=== PATIENT | female | born 1940 | race Caucasian/White ===

== ENCOUNTER 2018-09-06 16:27 | Emergency (ER) | payer MEDICARE, BC ==
[2018-09-06 17:15] LABS: ABSOLUTE BASOPHILS # (AUTO) 0.1 10^3/uL (0.0-0.2); ABSOLUTE LYMPHOCYTES (AUTO) 0.9 10^3/uL (0.5-4.7); ABSOLUTE MONOCYTES (AUTO) 0.6 10^3/uL (0.1-1.4); ABSOLUTE NEUT (AUTO) 8.5 10^3/uL (1.7-8.2); BASOPHILS % (AUTO) 0.7 % (0-2); EOSINOPHILS % (AUTO) 0.3 % (0-6); HEMATOCRIT 41.5 % (36.0-47.0); HEMOGLOBIN 13.6 g/dL (12.0-15.5); LYMPHOCYTES % (AUTO) 8.7 % (13-45); MEAN CORPUSCULAR HEMOGLOBIN 26.6 pg (27.0-33.4); MEAN CORPUSCULAR HGB CONC 32.7 g/dL (32.0-36.0); MEAN CORPUSCULAR VOLUME 82 fl (80-97); PLATELET COUNT 179 10^3/uL (150-450); RED CELL DISTRIBUTION WIDTH 17.9 % (11.5-14.0); SEGMENTED NEUTROPHILS % (AUTO) 84.3 % (42-78); TOTAL CELLS COUNTED % (AUTO) 100 %
[2018-09-06 17:29] LABS: AMORPHOUS SEDIMENT,URINE TRACE /HPF; APPEARANCE,URINE CLOUDY; BILIRUBIN,URINE NEGATIVE (NEGATIVE); CALCIUM OXALATE CRYSTALS,URINE FEW /HPF; COLOR,URINE YELLOW; GLUCOSE, URINE NEGATIVE (NEGATIVE); KETONES,URINE TRACE mg/dL (NEGATIVE); LEUKOCYTE ESTERASE,URINE NEGATIVE (NEGATIVE); NITRITE,URINE NEGATIVE (NEGATIVE); PROTEIN,URINE >=500 mg/dL (NEGATIVE); URINE SPECIFIC GRAVITY 1.025; UROBILINOGEN,URINE NEGATIVE mg/dL (<2.0)
[2018-09-06 17:41] LABS: ALANINE AMINOTRANSFERASE 31 U/L (9-52); ALBUMIN 4.2 g/dL (3.5-5.0); ALKALINE PHOSPHATASE 64 U/L (38-126); ANION GAP 12 (5-19); ASPARTATE AMINO TRANSFERASE 23 U/L (14-36); BILIRUBIN,DIRECT 0.3 mg/dL (0.0-0.4); BILIRUBIN,TOTAL 0.6 mg/dL (0.2-1.3); BLOOD UREA NITROGEN 23 mg/dL (7-20); CALCIUM 9.9 mg/dL (8.4-10.2); CARBON DIOXIDE 25 mmol/L (22-30); CHLORIDE 106 mmol/L (98-107); GLUCOSE 177 mg/dL (75-110); POTASSIUM 4.1 mmol/L (3.6-5.0); SODIUM 142.7 mmol/L (137-145); TOTAL PROTEIN 7.3 g/dL (6.3-8.2)
[2018-09-06] MEDS ORDERED: ONDANSETRON HCL INJ/PF 4 MG/2 ML SDV IV ONE (18:13)
[2018-09-06] MEDS ORDERED: MORPHINE SULFATE 10 MG/ML INJ IV ONE (18:13)
--- NOTE | 2018-09-06 20:06 | RADIOLOGY REPORT (SQ) ---
EXAM DESCRIPTION: CT HEAD WITHOUT COMPLETED DATE/TIME: 09/06/2018 7:48 pm REASON FOR STUDY: recurrent headaches COMPARISON: None. TECHNIQUE: Axial images acquired through the brain without intravenous contrast. Images reviewed wi th bone, brain and subdural windows. Images stored on PACS. All CT scanners at this facility use dose modulation, iterative reconstruction, and/or weight based d osing when appropriate to reduce radiation dose to as low as reasonably achievable (ALARA). [facility]: Dose Right [facility]: CareDose [facility]: Dose Right [facility]: Teradose 4D [facility]: FotoIN Mobile RADIATION DOSE: CT Rad equipment meets quality standard of care and radiation dose reduction techniq ues were employed. CTDIvol: 53.2 mGy. DLP: 991 mGy-cm. mGy. LIMITATIONS: None. FINDINGS: VENTRICLES: Age-appropriate. CEREBRUM: No masses. No hemorrhage. No midline shift. Areas of low density in the white matter mos t likely due to chronic micro-vascular ischemic change. No evidence for acute infarction. CEREBELLUM: No masses. No hemorrhage. No alteration of density. No evidence for acute infarction. EXTRAAXIAL SPACES: Mild age-related involutional change. No fluid collections. No masses. ORBITS AND GLOBE: No intra- or extraconal masses. Normal contour of globe without masses. CALVARIUM: No fracture. PARANASAL SINUSES: No fluid or mucosal thickening. SOFT TISSUES: No mass or hematoma. OTHER: No other significant finding. IMPRESSION: MILD CHRONIC CHANGES OF ATROPHY AND MICROVASCULAR ISCHEMIA. NO ACUTE PROCESS. EVIDENCE OF ACUTE STROKE: NO. TECHNICAL DOCUMENTATION: JOB ID: [id number] Quality ID # [id number]: Final reports with documentation of one or more dose reduction techniques (e.g., Au tomated exposure control, adjustment of the mA and/or kV according to patient size, use of iterative reconstruction technique) 2010 [employer]- All Rights Reserved Reading location - IP/workstation name: [email or web address]
--- NOTE | 2018-09-06 20:15 | ER Document Report ---
Addendum entered and electronically signed by MANDEEP AG NP 09/07/18 12:17: Course - Re-evaluation Re-evalutation: 09/07/18 12:16 Pharmacy called to see if they could switch patient's medication for nausea to a more affordable medication. As it is not covered by their insurance plan. Pharmacy staff advised that without knowing patient given her age no change would be made other than to make her Zofran ODT just an oral tablet. Pharmacy staff encouraged to have patient see her primary doctor who can adjust her nausea medications if needed. - Vital Signs Vital signs: Temp Pulse Resp BP Pulse Ox 98.6 F 18 172/80 H 96 09/06/18 16:48 09/06/18 19:02 09/06/18 21:55 09/06/18 21:55 - Laboratory Result Diagrams: 09/06/18 16:59 09/06/18 16:59 Laboratory results interpreted by me: 09/06/18 09/06/18 09/06/18 16:44 16:59 16:59 MCH 26.6 L RDW 17.9 H Seg Neutrophils % 84.3 H Lymphocytes % 8.7 L Absolute Neutrophils 8.5 H BUN 23 H Est GFR (Non-Af Amer) 50 L Glucose 177 H Urine Protein >=500 H Urine Ketones TRACE H Urine Blood LARGE H Original Note: ED General - General Chief Complaint: Diarrhea Stated Complaint: VOMITING Time Seen by Provider: 09/06/18 17:06 Primary Care Provider: ROSY NUNEZ MD [NO LOCAL MD] - Follow up as needed Mode of Arrival: Medic Information source: Patient Notes: Patient is a 78-year-old female with past medical history of kidney stones, colon cancer, cardiac bypass, hysterectomy and cholecystectomy presenting to the emergency department with complaints of nausea and vomiting and right lower quadrant abdominal pain that started this morning. She also reports she has been having diarrhea intermittently over the last month however this has resolved and the last episode was 2 days ago. She reports that it feels like she has a kidney stone. She reports that she has blood in her urine. She denies any fevers. She reports last time she vomited was approximately 1 hour prior to arrival. She is seen by Dr. Wagner and Dr. Horton. TRAVEL OUTSIDE OF THE [place] IN LAST 30 DAYS: No - Related Data Allergies/Adverse Reactions: No Known Allergies Allergy (Unverified 08/29/11 15:01) Past Medical History - General Information source: Patient - Social History Smoking Status: Never Smoker Frequency of alcohol use: None Drug Abuse: None Family History: Reviewed & Not Pertinent Patient has suicidal ideation: No Patient has homicidal ideation: No - Past Medical History Cardiac Medical History: Reports: Hx Heart Attack - x2 CABG, Hx Hypercholesterolemia, Hx Hypertension - medicated Pulmonary Medical History: Reports: Hx Asthma - medicated Neurological Medical History: Denies: Hx Cerebrovascular Accident, Hx Seizures Renal/ Medical History: Denies: Hx Peritoneal Dialysis GI Medical History: Denies: Hx Hepatitis, Hx Hiatal Hernia, Hx Ulcer Infectious Medical History: Denies: Hx Hepatitis Past Surgical History: Reports: Hx Cardiac Surgery, Hx Cholecystectomy, Hx Hysterectomy, Hx Open Heart Surgery. Denies: Hx Mastectomy, Hx Pacemaker - Immunizations Hx Diphtheria, Pertussis, Tetanus Vaccination: Yes Review of Systems - Review of Systems Constitutional: No symptoms reported. denies: Chills, Fever EENT: No symptoms reported Cardiovascular: No symptoms reported Respiratory: No symptoms reported Gastrointestinal: Abdominal pain, Nausea, Vomiting Genitourinary: Flank pain, Hematuria Female Genitourinary: No symptoms reported Musculoskeletal: No symptoms reported Skin: No symptoms reported Hematologic/Lymphatic: No symptoms reported Neurological/Psychological: No symptoms reported Physical Exam - Vital signs Vitals: Resp Pulse Ox 21 H 97 09/06/18 16:36 09/06/18 16:36 - Notes Notes: PHYSICAL EXAMINATION: GENERAL: Well-appearing, well-nourished and in no acute distress. HEAD: Atraumatic, normocephalic. EYES: Pupils equal round and reactive to light, extraocular movements intact, conjunctiva are normal. ENT: Nares patent, oropharynx clear without exudates. Moist mucous membranes. NECK: Normal range of motion, supple without lymphadenopathy LUNGS: Breath sounds clear to auscultation bilaterally and equal. No wheezes rales or rhonchi. HEART: Regular rate and rhythm without murmurs ABDOMEN: Soft,nondistended abdomen. Tenderness to palpation to the right lower quadrants. No guarding, no rebound. No masses appreciated. Female : Mild CVA tenderness to the right side. No CVA tenderness on the left. Musculoskeletal: Normal range of motion, no pitting or edema. No cyanosis. NEUROLOGICAL: Cranial nerves grossly intact. Normal speech. Normal sensory, motor exams PSYCH: Normal mood, normal affect. SKIN: Warm, Dry, normal turgor, no rashes or lesions noted. Course - Re-evaluation Re-evalutation: CBC and CMP are unremarkable. Urinalysis shows hematuria, no nitrites, no leukocyte esterase, 40+ WBCs and 1+ bacteria. The CT scan of the abdomen and pelvis is currently pending. Patient was initially medicated with 4 mg of mo rphine and 4 mg of Zofran. She does report some symptom relief however states her pain is still 3/5. Patient will be medicated at this time with IV Toradol and will be given 1 L normal saline bolus. Will reevaluate after administration of medications and once we have CT results reported. 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 Plan to consult [facility] as patient does not have a urologist. Spoke with Dr. Nunez, urologist with [facility]. I discussed her CT results as well as urinalysis. As long as patient's pain is controlled here in the emergency department, plan to send her home with Flomax, pain medication I will also start her on cephalexin as although her urine does not appear to be infected there is 40+ white blood cells. And 1+ bacteria so I feel that it would be prudent to get her started on something. I will give her a copy of her lab results as well as her CT report so that she has it available at her follow- up appointment. - Vital Signs Vital signs: Temp Pulse Resp BP Pulse Ox 98.6 F 18 181/66 H 94 09/06/18 16:48 09/06/18 19:00 09/06/18 18:37 09/06/18 19:00 - Laboratory Result Diagrams: 09/06/18 16:59 09/06/18 16:59 Laboratory results interpreted by me: 09/06/18 09/06/18 09/06/18 16:44 16:59 16:59 MCH 26.6 L RDW 17.9 H Seg Neutrophils % 84.3 H Lymphocytes % 8.7 L Absolute Neutrophils 8.5 H BUN 23 H Est GFR (Non-Af Amer) 50 L Glucose 177 H Urine Protein >=500 H Urine Ketones TRACE H Urine Blood LARGE H Discharge - Discharge Clinical Impression: Kidney stone Condition: Stable Disposition: HOME, SELF-CARE Additional Instructions: Your symptoms should improve over the course of the next one week. If you continue to have pain for greater than one week or your pain is not controlled with the pain medications that you have been sent home with you need to return to the emergency department. Please also return if you develop fever, persistent vomiting, or any other symptoms that are concerning to you. You should take ibuprofen 600 mg every 6 hours and use the oral morphine as prescribed only for pain not controlled by ibuprofen. You are also been sent home with a medication called Flomax to help pass the stone. You've been given Zofran to assist with nausea. Please take antibiotics as prescribed. Please follow-up with urology in the next 2-3 days, call them tomorrow morning let them know you were seen in the emergency department and that we spoke with Dr. Nunez and he would like you to follow-up with them. Prescriptions: Morphine Sulfate [Morphine Ir 15 mg Tablet] 15 mg PO Q4HP PRN #12 tablet PRN Reason: Cephalexin [Cephalexin 500 MG Tablet] 1 tab PO BID #14 tablet Ondansetron [Zofran Odt 4 mg Tablet] 1 - 2 tab PO Q4H PRN #15 tab.rapdis PRN Reason: For Nausea/Vomiting Tamsulosin HCl [Flomax 0.4 mg Cap.sr] 0.4 mg PO DAILY #7 cap.sr.24h Referrals: ROSY NUNEZ MD [NO LOCAL MD] - Follow up as needed
[2018-09-06] MEDS ORDERED: NORMAL SALINE 1000 ML 1,000 ML IV ONE (20:17)
[2018-09-06] MEDS ORDERED: KETOROLAC TROMETHAMINE INJ/PF 30 MG/1 ML SDV IV ONE (20:24)
--- NOTE | 2018-09-06 20:26 | RADIOLOGY REPORT (SQ) ---
EXAM DESCRIPTION: CT ABDOMEN PELVIS WITH IV CONTRAST COMPLETED DATE/TME: 09/06/2018 18:16 CLINICAL HISTORY: 78 years Female RLQ pain, diarrhea, hematuria COMPARISON: None. TECHNIQUE: Contiguous axial images obtained through the abdomen and pelvis following IV contrast. Reformatted images obtained. This exam was performed according to our department optimization program which includes automated exposure control, adjustment of the mA and/or kv according to patient size and/or use of iterative reconstruction technique. FINDINGS: Dependent atelectasis in the lung bases. Fatty infiltration of the liver. There are numerous venous collaterals over the lower chest, abdomen and pelvis. The spleen and pancreas appear unremarkable. No adrenal masses. There are numerous nonobstructing renal calculi bilaterally including dependent calculi in the left renal pelvis which are nonobstructing. There is moderate right hydronephrosis with a delayed nephrogram and perinephric edema. There are numerous calculi in the right ureter with an obstructing stone at the UVJ measuring 6 mm. There is a 2 mm stone on image 70. Additional elongated area of calculus in the distal ureter which extends over distance of 2.3 cm consistent with Steinstrasse. The gallbladder is likely absent. No aneurysmal dilatation of the aorta. No bowel obstruction. The appendix is unremarkable. No evidence of free fluid in the pelvis. Postoperative changes in the sigmoid colon. Extensive vascular calcification. 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 No definite venous occlusion is seen in the abdomen or pelvis. The possibility of superior vena cava syndrome should be considered Additional changes as above
[2018-09-06] MEDS ORDERED: TAMSULOSIN HCL 0.4 MG CAP.SR.24H PO ONE (20:41)
[2018-09-06] MEDS ORDERED: CEPHALEXIN 500 MG CAPSULE PO ONE (20:51)
[2018-09-06] MEDS ORDERED: ONDANSETRON ODT 4 MG TAB (6 TAB/ER DISP) PO PRN (20:51)
[2018-09-06] MEDS ORDERED: HYDROCODONE/ACETAMINOPHEN 5-325 MG (6 TAB/ER DISP) PO PRN (20:51)
[2018-09-06 22:11] VITALS: BP 172/80
== END 2018-09-06 22:19 | disposition home or self-care (01) ==
LOC: ER 16:27
DX: N20.0 Calculus of kidney (principal); R19.7 Diarrhea, unspecified; R11.2 Nausea with vomiting, unspecified; R31.9 Hematuria, unspecified; E78.00 Pure hypercholesterolemia, unspecified; Z87.442 Personal history of urinary calculi; Z85.038 Personal history of other malignant neoplasm of large intestine; Z95.1 Presence of aortocoronary bypass graft; Z90.710 Acquired absence of both cervix and uterus; Z90.49 Acquired absence of other specified parts of digestive tract; I25.2 Old myocardial infarction
CPT/HCPCS: 99284; 96361; 96374; 96375; 36415; 85025; 80053; 81001; 70450; 74177; A9270 ×4; J1885; J2270; J2405; J7030

== ENCOUNTER 2018-10-04 17:08 | Emergency (ER) | payer MEDICARE, BC ==
[2018-10-04] MEDS ORDERED: METOCLOPRAMIDE HCL INJ/PF 10 MG/2 ML SDV IV ONE (18:15)
[2018-10-04] MEDS ORDERED: NORMAL SALINE 1000 ML 1,000 ML IV ONE ×2 (18:15→19:54)
[2018-10-04] MEDS ORDERED: DIPHENHYDRAMINE HCL 50 MG/ML VIAL IV ONE (18:16)
--- NOTE | 2018-10-04 18:20 | ER Document Report ---
ED Headache - General Stated Complaint: BLOOD SUGAR ISSUES Time Seen by Provider: 10/04/18 18:08 Primary Care Provider: OZZY DENISE MD [Primary Care Provider] - Follow up as needed TRAVEL OUTSIDE OF THE [place] IN LAST 30 DAYS: No - HPI Notes: Patient is a 78-year-old female that presents to the emergency department for chief complaint of headache. Patient presented from home by EMS for complaint of nausea vomiting and headache for the last 3 weeks. EMS states that they took a random glucose which was 48. She did receive glucagon prior to coming in by EMS. Patient did not know her blood sugar was low. She does have diabetes and has been taking her medicine as directed. Patient states she has had a headache since the end of August every day. Over the last few days it has become worse. She describes it as a sharp pain diffuse on her entire head. She reports associated photophobia nausea and vomiting. She denies any abdominal pain, fever, neck pain, chest pain and shortness of breath. HPI is limited because patient is a poor historian and appears uncomfortable therefore not answering questions completely. Past Medical History: Diabetes Past Surgical History: Reviewed in chart Social History: Lives at home. Denies tobacco or alcohol use Family History: Reviewed and noncontributory for presenting illness Allergies: Reviewed, see documented allergy list. REVIEW OF SYSTEMS: CONSTITUTIONAL : No fever No chills No diaphoresis No recent illness EENT: No vision changes No congestion No sore throat CARDIOVASCULAR: No chest pain No palpitations RESPIRATORY: No shortness of breath No cough No difficulty breathing GASTROINTESTINAL: No abdominal pain nausea vomiting No diarrhea GENITOURINARY: No dysuria No hematuria No difficulty urinating MUSCULOSKELETAL: No back pain No leg pain No arm pain SKIN: No rashes No lesions LYMPHATIC: No swollen, enlarged glands. NEUROLOGICAL: No lightheadedness headache No weakness No paresthesias PSYCHIATRIC: No anxiety No depression PHYSICAL EXAMINATION: Vital signs reviewed, nursing noted reviewed. GENERAL: appears uncomfortable, obese HEAD: Atraumatic, normocephalic. EYES: Eyes appear normal, extraocular movements intact, sclera anicteric, conjunctiva are normal. ENT: nares patent, oropharynx clear without exudates. Dry mucous membranes. NECK: Normal range of motion, supple without lymphadenopathy LUNGS: Breath sounds clear to auscultation bilaterally and equal. No wheezes rales or rhonchi. HEART: Regular rate and rhythm without murmurs ABDOMEN: Soft, nontender, normoactive bowel sounds. No rebound, guarding, or rigidity. No masses appreciated. EXTREMITIES: Nontender, good range of motion, trace pretibial edema bilaterally and symmetric. NEUROLOGICAL: No focal neurological deficits. Moves all extremities spontaneously Motor and sensory grossly intact on exam. PSYCH: Normal mood, normal affect. SKIN: Warm, Dry, normal turgor, no rashes or lesions noted on exposed skin - Related Data Allergies/Adverse Reactions: No Known Allergies Allergy (Unverified 08/29/11 15:01) Past Medical History - Social History Smoking Status: Unknown if Ever Smoked Family History: Reviewed & Not Pertinent - Past Medical History Cardiac Medical History: Reports: Hx Heart Attack - x2 CABG, Hx Hypercholesterolemia, Hx Hypertension - medicated Pulmonary Medical History: Reports: Hx Asthma - medicated Neurological Medical History: Denies: Hx Cerebrovascular Accident, Hx Seizures Renal/ Medical History: Denies: Hx Peritoneal Dialysis GI Medical History: Denies: Hx Hepatitis, Hx Hiatal Hernia, Hx Ulcer Infectious Medical History: Denies: Hx Hepatitis Past Surgical History: Reports: Hx Cardiac Surgery, Hx Cholecystectomy, Hx Hysterectomy, Hx Open Heart Surgery. Denies: Hx Mastectomy, Hx Pacemaker - Immunizations Hx Diphtheria, Pertussis, Tetanus Vaccination: Yes Physical Exam - Vital signs Vitals: Temp Resp BP Pulse Ox 98.2 F 26 H 162/66 H 94 10/04/18 18:35 10/04/18 18:35 10/04/18 18:35 10/04/18 18:35 Course - Re-evaluation Re-evalutation: 10/04/18 18:18 Vitals reviewed. Nursing notes reviewed. Patient was hypoglycemic for EMS and received glucagon prior to arrival. Repeat glucose in the ED was greater than 200. Patient does appear dehydrated with dry mucous membranes. She was started on IV fluids, Reglan and Benadryl for symptomatic management of her dehydration and headache. Initial EKG showed mild ST depression V4 through V6 which is unchanged on repeat EKG. There is no ST elevation and patient is not having any current complaints of chest pain or dyspnea. Lab work and imaging has been ordered. 10/04/18 20:05 Patient was reevaluated after the initial bolus of fluids, Reglan and Benadryl and had no improvement of her headache. She still appears uncomfortable. Her glucose has increased into the 300s. Patient was ordered a second liter of fluids and Tylenol for further headache control. Lab work shows a mild leukocytosis at 13.5 which may be reactive from her vomiting. Patient is afebrile with no neck stiffness or other signs of meningitis. Her headache has been constant for 3 weeks and currently meningitis is not suspected. CT brain is negative. Chest x-ray shows no underlying pneumonia. She has no severe electrolyte derangements or signs of severe dehydration. Patient's urinalysis shows hematuria which she has had previously. Patient's last visit was for ureterolithiasis. Currently she is not having any abdominal pain or urinary complaints to suggest acute kidney stone. Patient's troponin is indeterminate at 0.08. She does have ST changes on EKG which are not dynamic in the ED. Her chart review shows similar ST depressions on old EKGs but it is difficult to assess that was a rhythm strip. Patient's care was discussed with Dr. Melgoza to admit her for observation since her headache is not improving and for monitoring of her troponins. He requests given her cardiac history to draw a second troponin in the emergency room. Laboratory 10/04/18 10/04/18 10/04/18 18:09 18:10 18:10 WBC 13.5 H RBC 5.51 H Hgb 14.7 Hct 45.0 MCV 82 MCH 26.6 L MCHC 32.6 RDW 17.8 H Plt Count 169 Total Counted 100 Seg Neutrophils % Not Reportable Seg Neuts % (Manual) 91 H Lymphocytes % Not Reportable Lymphocytes % (Manual) 5 L Monocytes % Not Reportable Monocytes % (Manual) 4 Eosinophils % Not Reportable Eosinophils % (Manual) 0 Basophils % Not Reportable Basophils % (Manual) 0 Absolute Neutrophils Not Reportable Abs Neuts (Manual) 12.3 H Absolute Lymphocytes Not Reportable Abs Lymphs (Manual) 0.7 Absolute Monocytes Not Reportable Abs Monocytes (Manual) 0.5 Absolute Eosinophils Not Reportable Absolute Eos (Manual) 0.0 Absolute Basophils Not Reportable Abs Basophils (Manual) 0.0 Platelet Comment ADEQUATE Anisocytosis 1+ Sodium 141.0 Potassium 3.7 Chloride 103 Carbon Dioxide 23 Anion Gap 15 BUN 26 H Creatinine 0.86 Est GFR ( Amer) > 60 Est GFR (Non-Af Amer) > 60 Glucose 324 H POC Glucose 209 H Calcium 9.7 Total Bilirubin 0.7 Direct Bilirubin 0.4 Neonat Total Bilirubin Not Reportable Neonat Direct Bilirubin Not Reportable Neonat Indirect Bili Not Reportable AST 41 H ALT 32 Alkaline Phosphatase 63 Troponin I Total Protein 7.6 Albumin 4.3 Lipase 26.2 Urine Color Urine Appearance Urine pH Ur Specific Atkinson Urine Protein Urine Glucose (UA) Urine Ketones Urine Blood Urine Nitrite Urine Bilirubin Urine Urobilinogen Ur Leukocyte Esterase Urine WBC (Auto) Urine RBC (Auto) U Hyaline Cast (Auto) Urine Bacteria (Auto) Squamous Epi Cells Auto Urine Mucus (Auto) Urine Ascorbic Acid 10/04/18 10/04/18 18:10 18:10 WBC RBC Hgb Hct MCV MCH MCHC RDW Plt Count Total Counted Seg Neutrophils % Seg Neuts % (Manual) Lymphocytes % Lymphocytes % (Manual) Monocytes % Monocytes % (Manual) Eosinophils % Eosinophils % (Manual) Basophils % Basophils % (Manual) Absolute Neutrophils Abs Neuts (Manual) Absolute Lymphocytes Abs Lymphs (Manual) Absolute Monocytes Abs Monocytes (Manual) Absolute Eosinophils Absolute Eos (Manual) Absolute Basophils Abs Basophils (Manual) Platelet Comment Anisocytosis Sodium Potassium Chloride Carbon Dioxide Anion Gap BUN Creatinine Est GFR ( Amer) Est GFR (Non-Af Amer) Glucose POC Glucose Calcium Total Bilirubin Direct Bilirubin Neonat Total Bilirubin Neonat Direct Bilirubin Neonat Indirect Bili AST ALT Alkaline Phosphatase Troponin I 0.080 Total Protein Albumin Lipase Urine Color DARK YELLOW Urine Appearance CLOUDY Urine pH 5.0 Ur Specific [place] 1.028 Urine Protein >=500 H Urine Glucose (UA) NEGATIVE Urine Ketones 20 H Urine Blood LARGE H Urine Nitrite NEGATIVE Urine Bilirubin NEGATIVE Urine Urobilinogen 2.0 H Ur Leukocyte Esterase NEGATIVE Urine WBC (Auto) 42 Urine RBC (Auto) >182 U Hyaline Cast (Auto) 15 Urine Bacteria (Auto) 3+ Squamous Epi Cells Auto 4 Urine Mucus (Auto) MANY Urine Ascorbic Acid NEGATIVE Chest X-Ray 10/04/18 18:08 IMPRESSION: NO ACUTE RADIOGRAPHIC FINDING IN THE CHEST. Head CT 10/04/18 18:15 IMPRESSION: NO ACUTE INTRACRANIAL FINDINGS. EVIDENCE OF ACUTE STROKE: NO. Patient's delta troponin is slightly less than her initial at 0.073. She has now received a total of 1500 mL's of normal saline, Reglan, Benadryl, Tylenol and morphine and reports no improvement in her headache. She will be admitted for intractable migraine. Dr. Melgoza accepts admission. - Vital Signs Vital signs: Temp Pulse Resp BP Pulse Ox 98.2 F 14 144/62 H 96 10/04/18 18:35 10/04/18 21:31 10/04/18 21:31 10/04/18 21:31 - Laboratory Result Diagrams: 10/04/18 18:10 10/04/18 18:10 Laboratory results interpreted by me: 10/04/18 10/04/18 10/04/18 18:09 18:10 18:10 WBC 13.5 H RBC 5.51 H MCH 26.6 L RDW 17.8 H Seg Neuts % (Manual) 91 H Lymphocytes % (Manual) 5 L Abs Neuts (Manual) 12.3 H BUN 26 H Glucose 324 H POC Glucose 209 H AST 41 H Urine Protein Urine Ketones Urine Blood Urine Urobilinogen 10/04/18 18:10 WBC RBC MCH RDW Seg Neuts % (Manual) Lymphocytes % (Manual) Abs Neuts (Manual) BUN Glucose POC Glucose AST Urine Protein >=500 H Urine Ketones 20 H Urine Blood LARGE H Urine Urobilinogen 2.0 H - EKG Interpretation by Me Additional EKG results interpreted by me: 10/04/18 18:19 Interpreted by myself 1754: Normal sinus rhythm, rate 83, normal axis, no ectopy, no STEMI, mild ST depression V4 through V6 1817: Normal sinus rhythm, rate 72, normal axis, no ectopy, unchanged from initial, no STEMI Discharge - Discharge Clinical Impression: Hypoglycemia Intractable migraine Qualifiers: Migraine type: other Status migrainosus presence: with status migrainosus Qualified Code(s): G43.811 - Other migraine, intractable, with status migrainosus Condition: Stable Disposition: ADMITTED OBSERVATION Admitting Provider: Abad (Hospitalist) Unit Admitted: Medical Floor Referrals: OZZY DENISE MD [Primary Care Provider] - Follow up as needed
--- NOTE | 2018-10-04 18:37 | RADIOLOGY REPORT (SQ) ---
EXAM DESCRIPTION: CHEST SINGLE VIEW COMPLETED DATE/TIME: 10/04/2018 6:23 pm REASON FOR STUDY: vomiting COMPARISON: 08/25/2011 EXAM PARAMETERS: NUMBER OF VIEWS: One view. TECHNIQUE: Single frontal radiographic view of the chest acquired. RADIATION DOSE: NA LIMITATIONS: None. FINDINGS: LUNGS AND PLEURA: No opacities, masses or pneumothorax. No pleural effusion. MEDIASTINUM AND HILAR STRUCTURES: No masses. Contour normal. HEART AND VASCULAR STRUCTURES: Heart normal in size. Normal vasculature. BONES: No acute findings. HARDWARE: Sternotomy wires. Graft markers. OTHER: No other significant finding. IMPRESSION: NO ACUTE RADIOGRAPHIC FINDING IN THE CHEST. TECHNICAL DOCUMENTATION: JOB ID: [id number] [employer]- All Rights Reserved Reading location - IP/workstation name: [email or web address]
[2018-10-04 18:50] LABS: HEMOGLOBIN 14.7 g/dL (12.0-15.5); MEAN CORPUSCULAR HEMOGLOBIN 26.6 pg (27.0-33.4); MEAN CORPUSCULAR HGB CONC 32.6 g/dL (32.0-36.0); MEAN CORPUSCULAR VOLUME 82 fl (80-97); PLATELET COUNT 169 10^3/uL (150-450); RED BLOOD COUNT 5.51 10^6/uL (3.72-5.28); RED CELL DISTRIBUTION WIDTH 17.8 % (11.5-14.0); WHITE BLOOD COUNT 13.5 10^3/uL (4.0-10.5)
[2018-10-04 18:59] LABS: ALANINE AMINOTRANSFERASE 32 U/L (9-52); ALBUMIN 4.3 g/dL (3.5-5.0); ALKALINE PHOSPHATASE 63 U/L (38-126); ANION GAP 15 (5-19); ASPARTATE AMINO TRANSFERASE 41 U/L (14-36); BILIRUBIN,DIRECT 0.4 mg/dL (0.0-0.4); BILIRUBIN,TOTAL 0.7 mg/dL (0.2-1.3); BLOOD UREA NITROGEN 26 mg/dL (7-20); CALCIUM 9.7 mg/dL (8.4-10.2); CARBON DIOXIDE 23 mmol/L (22-30); CHLORIDE 103 mmol/L (98-107); GLUCOSE 324 mg/dL (75-110); POTASSIUM 3.7 mmol/L (3.6-5.0); TOTAL PROTEIN 7.6 g/dL (6.3-8.2)
[2018-10-04 19:05] LABS: APPEARANCE,URINE CLOUDY; BILIRUBIN,URINE NEGATIVE (NEGATIVE); GLUCOSE, URINE NEGATIVE (NEGATIVE); KETONES,URINE 20 mg/dL (NEGATIVE); LEUKOCYTE ESTERASE,URINE NEGATIVE (NEGATIVE); NITRITE,URINE NEGATIVE (NEGATIVE); PROTEIN,URINE >=500 mg/dL (NEGATIVE); URINE SPECIFIC GRAVITY 1.028
--- NOTE | 2018-10-04 19:05 | RADIOLOGY REPORT (SQ) ---
EXAM DESCRIPTION: CT HEAD WITHOUT COMPLETED DATE/TIME: 10/04/2018 6:38 pm REASON FOR STUDY: headache COMPARISON: 09/06/2018 TECHNIQUE: Axial images acquired through the brain without intravenous contrast. Images reviewed wit h bone, brain and subdural windows. Images stored on PACS. All CT scanners at this facility use dose modulation, iterative reconstruction, and/or weight based d osing when appropriate to reduce radiation dose to as low as reasonably achievable (ALARA). [facility]: Dose Right [facility]: CareDose [facility]: Dose Right [facility]: Teradose 4D [facility]: Smart Humagade RADIATION DOSE: CT Rad equipment meets quality standard of care and radiation dose reduction techniq ues were employed. CTDIvol: 53.2 - 55.2 mGy. DLP: 2182 mGy-cm.. LIMITATIONS: None. FINDINGS: VENTRICLES: Normal size and contour. CEREBRUM: No masses. No hemorrhage. No midline shift. Age appropriate white matter. No evidence for a cute infarction. CEREBELLUM: No masses. No hemorrhage. No alteration of density. No evidence for acute infarction. EXTRA-AXIAL SPACES: No fluid collections. ORBITS AND GLOBE: No intra- or extraconal masses. Normal contour of globe without masses. CALVARIUM: No fracture. PARANASAL SINUSES: No fluid or mucosal thickening. SOFT TISSUES: No mass or hematoma. OTHER: No other significant finding. IMPRESSION: NO ACUTE INTRACRANIAL FINDINGS. EVIDENCE OF ACUTE STROKE: NO. TECHNICAL DOCUMENTATION: JOB ID: [id number] Quality ID # [id number]: Final reports with documentation of one or more dose reduction techniques (e.g., Au tomated exposure control, adjustment of the mA and/or kV according to patient size, use of iterative reconstruction technique) 2010 [employer] All Rights Reserved Reading location - IP/workstation name: [employer]
[2018-10-04] MEDS ORDERED: ACETAMINOPHEN 325 MG TABLET PO ONE (19:06)
[2018-10-04 19:09] LABS: COLOR,URINE DARK YELLOW
[2018-10-04 19:18] LABS: ABSOLUTE LYMPHOCYTES# (MANUAL) 0.7 10^3/uL (0.5-4.7); ABSOLUTE MONOCYTES # (MANUAL) 0.5 10^3/uL (0.1-1.4); ANISOCYTOSIS 1+; BASOPHILS % (MANUAL) 0 % (0-2); EOSINOPHILS % (MANUAL) 0 % (0-6); LYMPHOCYTES % (MANUAL) 5 % (13-45); MONOCYTES % (MANUAL) 4 % (3-13); PLATELET COMMENT ADEQUATE; SEGMENTED NEUTROPHILS % (MAN) 91 % (42-78); TOTAL CELLS COUNTED 100
[2018-10-04] MEDS ORDERED: MORPHINE SULFATE 10 MG/ML INJ IV ONE (21:56)
[2018-10-04] MEDS ORDERED: MAGNESIUM SULFATE/D5W 1 GM/100 ML RTUPB IV ONE (23:15)
--- NOTE | 2018-10-04 23:18 | EKG REPORT ---
SEVERITY:- ABNORMAL ECG - SINUS RHYTHM NONSPECIFIC REPOL ABNORMALITY, DIFFUSE LEADS BORDERLINE PROLONGED QT INTERVAL : Confirmed by: Pedro Horton 04-Oct-2018 23:17:36
--- NOTE | 2018-10-04 23:19 | EKG REPORT ---
SEVERITY:- ABNORMAL ECG - SINUS RHYTHM REPOL ABNRM SUGGESTS ISCHEMIA, ANT-LAT LEADS VS LVH : Confirmed by: Pedro Horton 04-Oct-2018 23:18:12
[2018-10-04] MEDS ORDERED: MAG HYDROX/AL HYDROX/SIMETH SUSP 30 ML UDCUP PO PRN (23:39)
[2018-10-04] MEDS ORDERED: MAGNESIUM HYDROXIDE SUSP 30 ML UDCUP PO PRN (23:39)
[2018-10-04] MEDS ORDERED: PROMETHAZINE HCL INJ 25 MG/1 ML VIAL IV PRN (23:39)
[2018-10-04] MEDS ORDERED: DEXTROSE 50%-WATER 25 GM/50 ML DISP.SYRIN IV PRN ×2 (23:43)
[2018-10-04] MEDS ORDERED: GLUCAGON,HUMAN RECOMB 1 MG INJ IM PRN (23:43)
[2018-10-04] MEDS ORDERED: DEXTROSE 40% GEL 15 GM TUBE PO PRN ×2 (23:43)
[2018-10-04] MEDS ORDERED: HYDRALAZINE HCL INJ/PF 20 MG/1 ML SDV IV PRN (23:44)
[2018-10-04] MEDS ORDERED: MORPHINE SULFATE 10 MG/ML INJ IV PRN (23:44)
[2018-10-04] MEDS ORDERED: LEVALBUTEROL HCL NEB 0.63 MG/3 ML AMPUL NEB PRN (23:44)
[2018-10-05] MEDS: IPRATROPIUM BROMIDE 0.02% NEB 0.5 MG/2.5 ML AMPUL NEB SCH ×4 (00:43→23:46)
[2018-10-05] MEDS: LEVALBUTEROL HCL NEB 1.25 MG/3 ML AMPUL NEB SCH ×4 (00:43→23:46)
[2018-10-05] MEDS ORDERED: FAMOTIDINE 20 MG TABLET PO ONE (00:45)
[2018-10-05] MEDS ORDERED: METHYLPREDNISOLONE INJ 40 MG/1 ML SDV IV ONE ×2 (00:45→03:15)
[2018-10-05] MEDS: RINGERS SOLUTION,LACTATED 1,000 ML IV PRN ×3 (03:14→22:32)
--- NOTE | 2018-10-05 03:34 | PDOC H&P ---
History of Present Illness Admission Date/PCP: 10/04/2018 22:56 OZZY DENISE MD Patient complains of: Headache History of Present Illness: MANAV NAZARIO is a 78 year old female who presented to emergency room with a 3-4 week history of headache. She complains of a headache that has gradually become more severe over the course of the last 3-4 weeks. Her symptoms have worsened particularly over the last 3 to 4 days. Today her headache is severe and she characterizes the pain as a constant sharp pain in all aspects of her head without radiation. The headache has been accompanied by nausea with vomiting and photophobia. She denies other accompanying or associated symptoms. She admits prior similar episodes many years ago with migraines. She denies identification of any other aggravating or ameliorating factors for her headache. Her notes that she has been experiencing poor cognition and having a difficult time communicating verbally both receptively and expressively over the last 3 to 4 days. In the emergency room she was found to have an unremarkable CT scan of the head and her laboratory evaluation was also unremarkable. Patient did not respond to usual treatments for headache and subsequently was placed on observation status, for further evaluation and treatment, in the hospital. Past Medical History Cardiac Medical History: Reports: Coronary Artery Disease, Myocardial Infarction - x2 CABG, Hyperlipidema, Hypertension - medicated Denies: Atrial Fibrillation, Congestive Heart Failure Pulmonary Medical History: Reports: Asthma, Chronic Obstructive Pulmonary Disease (COPD), Respiratory Failure - Chronic respiratory failure with hypoxia EENT Medical History: Reports: Cataracts - Bilateral Denies: Ears - Hearing aids Neurological Medical History: Denies: Hemorrhagic CVA, Ischemic CVA, Multiple Sclerosis, Seizures Endocrine Medical History: Reports: Diabetes Mellitus Type 2 Denies: Diabetes Mellitus Type 1, Hyperthyroidism, Hypothyroidism Renal/ Medical History: Denies: Chronic Kidney Disease, Nephrolithiasis Malignancy Medical History: Reports: Colorectal Cancer - 12 years ago? GI Medical History: Denies: Cirrhosis, Crohn's Disease, Hepatitis, Hiatal Hernia, Ulcerative Colitis Musculoskeltal Medical History: Reports: Arthritis Denies: Gout Skin Medical History: Denies: Eczema, Psoriasis Psychiatric Medical History: Reports: Tobacco Dependency Denies: Alcohol Dependency, Substance Abuse Traumatic Medical History: Reports: None Hematology: Reports: Anemia Denies: Bleeding Tendencies Infectious Medical History: Reports: None Past Surgical History Past Surgical History: Reports: Cholecystectomy, Hysterectomy, Other - Bilateral cataract surgery Social History Information Source: Patient Lives with: Spouse/Significant other Smoking Status: Former Smoker Frequency of Alcohol Use: None Hx Recreational Drug Use: No Drugs: None Hx Prescription Drug Abuse: No - Advance Directive Resuscitation Status: Full Code Surrogate healthcare decision maker:: Carter Nazario Family History Family History: CAD, DM, Hypertension, Malignancy Parental Family History Reviewed: Yes Children Family History Reviewed: No Sibling(s) Family History Reviewed.: Yes Medication/Allergy Home Medications: Albuterol Sulfate [Proventil 0.5% Neb 2.5 mg/0.5 mL Ampule] 2.5 mg IH Q4H 08/29/11 Aspirin [Aspirin EC 325 mg Tablet] 325 mg PO DAILY 08/29/11 Fluticasone/Salmeterol [Advair 100-50 Diskus 28 Dose] 1 puff IH Q12 08/29/11 Insulin Glargine,Hum.rec.anlog [Lantus Solostar] 15 unit SQ QHS 08/29/11 Isosorbide Mononitrate 60 mg PO DAILY 08/29/11 Loratadine 10 mg PO DAILY 08/29/11 Metformin HCl [Glucophage 500 Mg Tablet] 500 mg PO BID 08/29/11 Metoprolol Tartrate [Lopressor 25 Mg Tablet] 25 mg PO BID 08/29/11 Nitroglycerin [Nitrostat SL 0.4 mg Tablet] 0.4 mg SL PRN PRN 08/29/11 Amlodipine Besylate 2.5 mg PO DAILY 05/14/14 Clonazepam [Klonopin 0.5 mg Tablet Rapid Dissolve] 0.5 mg PO DAILY 05/14/14 Clopidogrel Bisulfate [Plavix 75 mg Tablet] 75 mg PO DAILY 05/14/14 Dextran 70/Hypromellose [Artificial Tears] 1 each OP PRN PRN 05/14/14 Polyethylene Glycol 3350 [Miralax Powder 17 gm/Packet] 1 packet PO DAILY 05/14/14 Sertraline HCl 50 mg PO DAILY 05/14/14 Simvastatin [Zocor 20 mg Tablet] 20 mg PO QHS 05/14/14 Tramadol HCl 50 mg PO DAILY 05/14/14 Besifloxacin HCl [Besivance Drops] 1 drop OP .ASDIR 05/17/14 Difluprednate [Durezol] 1 drop OP .ASDIR 05/17/14 Iron Gly,Fum/C/B12/Me-Thfolate [Maxaron Forte Tablet] 1 each PO DAILY 05/17/14 Nepafenac [Ilevro] 1 drop OP .ASDIR 05/17/14 Oxygen 2 l IH DAILY 05/17/14 Cephalexin [Cephalexin 500 MG Tablet] 1 tab PO BID #14 tablet 09/06/18 Morphine Sulfate [Morphine Ir 15 mg Tablet] 15 mg PO Q4HP PRN #12 tablet 09/06/18 Ondansetron [Zofran Odt 4 mg Tablet] 1 - 2 tab PO Q4H PRN #15 tab.rapdis 09/06/18 Tamsulosin HCl [Flomax 0.4 mg Cap.sr] 0.4 mg PO DAILY #7 cap.sr.24h 09/06/18 Allergies/Adverse Reactions: No Known Allergies Allergy (Unverified 08/29/11 15:01) Review of Systems Constitutional: PRESENT: as per HPI, headache(s). ABSENT: chills, fever(s) Eyes: PRESENT: other - Photophobia. ABSENT: visual disturbances Ears: ABSENT: hearing changes, other - Ear pain Nose, Mouth, and Throat: ABSENT: mouth pain, sore throat Cardiovascular: ABSENT: chest pain, palpitations Respiratory: ABSENT: cough, dyspnea Gastrointestinal: PRESENT: as per HPI, nausea, vomiting. ABSENT: abdominal pain, constipation, diarrhea Genitourinary: ABSENT: dysuria, hematuria Musculoskeletal: ABSENT: back pain, joint swelling, muscle weakness Integumentary: ABSENT: pruritus, rash Neurological: ABSENT: confusion, convulsions, focal weakness, memory loss, syncope Psychiatric: ABSENT: anxiety, depression Endocrine: ABSENT: cold intolerance, heat intolerance Hematologic/Lymphatic: ABSENT: easy bleeding, easy bruising Physical Exam Vital Signs: Temp Pulse Resp BP Pulse Ox 98.2 F 14 144/62 H 96 10/04/18 18:35 10/04/18 21:31 10/04/18 21:31 10/04/18 21:31 Intake & Output 10/02/18 10/03/18 10/04/18 23:59 23:59 23:59 Intake Total 1999 Balance 1999 Weight 84.4 kg General appearance: PRESENT: cooperative, mild distress - Secondary to headache Head exam: PRESENT: atraumatic, normocephalic Eye exam: PRESENT: conjunctiva pink. ABSENT: conjunctival injection, scleral icterus Ear exam: PRESENT: normal external ear exam. ABSENT: bleeding, drainage Mouth exam: PRESENT: dry mucosa, neck supple Neck exam: ABSENT: thyromegaly, tracheal deviation Respiratory exam: PRESENT: decreased breath sounds - Moderately decreased breath sounds throughout all sanchez consistent with moderate to severe COPD, symmetrical, unlabored Cardiovascular exam: PRESENT: RRR. ABSENT: clicks, gallop, rubs Pulses: PRESENT: normal radial pulses, normal dorsalis pedis pul Vascular exam: PRESENT: normal capillary refill. ABSENT: pallor GI/Abdominal exam: PRESENT: normal bowel sounds, soft Rectal exam: PRESENT: deferred Extremities exam: ABSENT: joint swelling, pedal edema Musculoskeletal exam: ABSENT: deformity, dislocation Neurological exam: PRESENT: alert, oriented to person, oriented to place, oriented to time, oriented to situation, CN II-XII grossly intact. ABSENT: motor sensory deficit Psychiatric exam: PRESENT: appropriate affect, normal mood Skin exam: PRESENT: dry, intact, warm. ABSENT: jaundice, rash, urticaria Results Laboratory Results: 10/04/18 18:10 10/04/18 18:10 10/04/18 10/04/18 10/04/18 18:10 18:10 18:10 WBC 13.5 H RBC 5.51 H Hgb 14.7 Hct 45.0 MCV 82 MCH 26.6 L MCHC 32.6 RDW 17.8 H Plt Count 169 Seg Neutrophils % Not Reportable Lymphocytes % Not Reportable Monocytes % Not Reportable Eosinophils % Not Reportable Basophils % Not Reportable Absolute Neutrophils Not Reportable Absolute Lymphocytes Not Reportable Absolute Monocytes Not Reportable Absolute Eosinophils Not Reportable Absolute Basophils Not Reportable Sodium 141.0 Potassium 3.7 Chloride 103 Carbon Dioxide 23 Anion Gap 15 BUN 26 H Creatinine 0.86 Est GFR ( Amer) > 60 Est GFR (Non-Af Amer) > 60 Glucose 324 H Calcium 9.7 Total Bilirubin 0.7 AST 41 H ALT 32 Alkaline Phosphatase 63 Total Protein 7.6 Albumin 4.3 Lipase 26.2 Urine Color DARK YELLOW Urine Appearance CLOUDY Urine pH 5.0 Ur Specific [place] 1.028 Urine Protein >=500 H Urine Glucose (UA) NEGATIVE Urine Ketones 20 H Urine Blood LARGE H Urine Nitrite NEGATIVE Ur Leukocyte Esterase NEGATIVE Urine WBC (Auto) 42 Urine RBC (Auto) >182 10/04/18 10/04/18 18:10 21:32 Troponin I 0.080 0.073 Impressions: Chest X-Ray 10/04/18 18:08 IMPRESSION: NO ACUTE RADIOGRAPHIC FINDING IN THE CHEST. Head CT 10/04/18 18:15 IMPRESSION: NO ACUTE INTRACRANIAL FINDINGS. EVIDENCE OF ACUTE STROKE: NO. Assessment and Plan - Diagnosis (1) Intractable headache Qualifiers: Headache type: unspecified Headache chronicity pattern: unspecified pattern Qualified Code(s): R51 - Headache Is this a current diagnosis for this admission?: Yes Plan: Patient be placed in observation status and an MRI of her head will be obtained. She will receive morphine sulfate IV 3.0 to 7.5 mg every 2 hours as needed on a sliding scale basis. She will also be maintained on IV fluids. Her headache status will be reevaluated frequently on an ongoing basis. Daily laboratory evaluations with a CBC, metabolic profile and magnesium level will be obtained. A thyroid profile and a lipid profile will also be obtained. (2) CAD (coronary artery disease) Qualifiers: Coronary Disease-Associated Artery/Lesion type: [place] artery [place] vs. transplanted heart: [place] heart Associated angina: without angina Qualified Code(s): I25.10 - Atherosclerotic heart disease of [place] coronary artery without angina pectoris Is this a current diagnosis for this admission?: Yes Plan: Patient be continued on her usual medications for coronary artery disease. (3) COPD (chronic obstructive pulmonary disease) Qualifiers: COPD type: unspecified COPD Qualified Code(s): J44.9 - Chronic obstructive pulmonary disease, unspecified Is this a current diagnosis for this admission?: Yes Plan: Patient be continued on her usual regiment for COPD if it is available to her pharmacy. If not she will receive a standard pulmonary toilet. (4) Diabetes mellitus, type II, insulin dependent Is this a current diagnosis for this admission?: Yes Plan: Patient be continued on her usual diabetic regiment and a diabetic diet. Hemoglobin A1c will be obtained to evaluate the patient's current therapy efficacy. Before meals and at bedtime blood sugars will be obtained with slidin g scale insulin for hyperglycemia and a hypoglycemic regiment in place. - Time Time Spent with patient: 25-34 minutes Smoking Cessation Education: 3 to 10 minutes Medications reviewed and adjusted accordingly: Yes Anticipated discharge: Home - Inpatient Certification Based on my medical assessment, after consideration of the patient's comorbidities, presenting symptoms, or acuity I expect that the services needed warrant INPATIENT care.: No I certify that my determination is in accordance with my understanding of Medicare's requirements for reasonable and necessary INPATIENT services [42 CFR 412.3e].: No Medical Necessity: Need For IV Fluids, Need for Pain Control
[2018-10-05 03:50] LABS: HEMATOCRIT 37.3 % (36.0-47.0); MEAN CORPUSCULAR HEMOGLOBIN 26.5 pg (27.0-33.4); MEAN CORPUSCULAR HGB CONC 32.5 g/dL (32.0-36.0); MEAN CORPUSCULAR VOLUME 82 fl (80-97); PLATELET COUNT 150 10^3/uL (150-450); RED BLOOD COUNT 4.57 10^6/uL (3.72-5.28); RED CELL DISTRIBUTION WIDTH 17.6 % (11.5-14.0); WHITE BLOOD COUNT 7.8 10^3/uL (4.0-10.5)
[2018-10-05 03:52] LABS: HEMOGLOBIN 12.1 g/dL (12.0-15.5)
[2018-10-05 04:05] LABS: ANION GAP 10 (5-19); BLOOD UREA NITROGEN 23 mg/dL (7-20); CALCIUM 8.7 mg/dL (8.4-10.2); CARBON DIOXIDE 24 mmol/L (22-30); CHLORIDE 107 mmol/L (98-107); CHOLESTEROL 105.38 mg/dL (0-200); GLUCOSE 94 mg/dL (75-110); POTASSIUM 3.1 mmol/L (3.6-5.0); TRIGLYCERIDES 107 mg/dL (<150)
[2018-10-05 04:16] LABS: DIRECT LDL 58 mg/dL (<100)
[2018-10-05 04:19] LABS: CREATINE KINASE < 20 U/L (30-135)
[2018-10-05 04:29] LABS: CREATINE KINASE MB 0.61 ng/mL (<4.55)
[2018-10-05 04:36] LABS: TROPONIN I 0.049 ng/mL
[2018-10-05 05:22] LABS: FREE T3 3.64 pg/mL (2.77-5.27); FREE T4 (FREE THYROXINE) 1.72 ng/dL (0.78-2.19)
[2018-10-05 05:36] LABS: THYROID STIMULATING HORMONE 2.14 uIU/mL (0.47-4.68)
[2018-10-05] MEDS: HEPARIN SOD (PORCINE) 5,000 UNIT/ML 1 ML VIAL SUBCUT SCH ×3 (06:19→22:29)
[2018-10-05] MEDS: BUDESONIDE NEB 0.5 MG/2 ML AMPUL NEB SCH ×2 (09:05→20:34)
--- NOTE | 2018-10-05 09:35 | RADIOLOGY REPORT (SQ) ---
EXAM DESCRIPTION: MRI HEAD COMBO COMPLETED DATE/TIME: 10/05/2018 8:57 am REASON FOR STUDY: progressive global headache X 3 weeks COMPARISON: 10/04/2018 CT, 07/22/2009 MRI TECHNIQUE: Multiplanar imaging includes noncontrasted T1, T2, FLAIR, and Diffusion with ADC map seq uences. Contrast enhanced T1 images. Images stored on PACS. RENAL FUNCTION: GFR greater than 60, creatinine 0.9 LIMITATIONS: Multiple images degraded by patient motion artifact. FINDINGS: ANATOMY: No anomalies. Normal vascular flow voids. Pituitary fossa normal. CSF SPACES: Prominence of the ventricular system compatible with parenchymal volume loss. No evidenc e of hemorrhage or mass lesion. CEREBRUM: A few high-signal intensity lesions scattered throughout the white matter on FLAIR imaging with distribution suggesting chronic microvascular ischemic change. Sulci and gyri normal in size and contour. More focal areas of T2 signal abnormality within the thalamus bilaterally, likely secondar y to chronic lacunar infarcts. No evidence of hemorrhage, mass or extraaxial fluid collection. No en hancing lesions. POSTERIOR FOSSA: No signal alteration. No hemorrhage. No edema, masses or mass effect. Internal audit ory canals, cerebello-pontine angles, mastoids normal. DIFFUSION: Negative for acute or subacute infarction. ORBITS: No masses. Globes normal. PARANASAL SINUSES: No fluid levels. Mucosa normal. OTHER: No other significant finding. IMPRESSION: Motion degraded exam. 1. No evidence of acute intracranial abnormality. 2. 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 EVIDENCE OF ACUTE STROKE: NO. TECHNICAL DOCUMENTATION: JOB ID: [id number] [employer]- All Rights Reserved CONTRAST TYPE AND DOSE: mL 15 mL Dotarem. Reading location - IP/workstation name: [email or web address]-
[2018-10-05] MEDS ORDERED: METHYLPREDNISOLONE INJ 40 MG/1 ML SDV IV SCH (10:00)
[2018-10-05] MEDS: FAMOTIDINE 20 MG TABLET PO SCH ×2 (10:09→22:29)
[2018-10-05] MEDS: DOCUSATE SODIUM 100 MG CAPSULE PO SCH ×4 (10:09→18:12)
[2018-10-05 11:09] LABS: CREATINE KINASE MB 0.61 ng/mL (<4.55); TROPONIN I 0.025 ng/mL
--- NOTE | 2018-10-05 14:45 | Progress Note Acknowledgement ---
Progress Note Acknowledgement Progess Note Acknowledgement: I, the undersigned member of the medical staff with appropriate privileges and with supervisory authority over [ PAC ], a dependent practice allied health professional, acknowledge that I have reviewed the progress notes entered on this patient, and in my professional judgment believe that the assessment made and/or any care evidenced was appropriate
--- NOTE | 2018-10-05 14:48 | PDOC PROGRESS REPORT ---
Subjective Progress Note for:: 10/05/18 Subjective:: 10/05/2018 she was admitted last night for a worsening headache for the last 3 weeks, this actually been going on for 8 months. She states that ever since she fell and hit her head back in December she is had a headache though it is much worse in the last 3 weeks patient also is complaining of some nausea and vomiting for the last 3 weeks. Patient states the headache is in the frontal region behind both eyes but is worse on the right side than the left. Patient used to have migraines when she was much younger but has not had them for years. Patient states that this headache is not typical for what her migraines used to be like. Patient has a history of having a bypass surgery 10 years ago, 2 MIs and colon cancer where she was treated with chemotherapy. Patient states that her worst problem is this headache. Patient states that is almost difficult to talk due to the pain and she seems somewhat "confused" Reason For Visit: INTRACTABLE HEADACHE Physical Exam Vital Signs: Temp Pulse Resp BP Pulse Ox 97.4 F 80 20 163/52 H 94 10/05/18 12:21 10/05/18 12:21 10/05/18 12:21 10/05/18 12:21 10/05/18 12:21 Intake & Output 10/04/18 10/05/18 10/06/18 06:59 06:59 06:59 Intake Total 2100 0 Balance 2100 0 Weight 84.4 kg 82.2 kg General appearance: PRESENT: cooperative, mild distress Head exam: PRESENT: atraumatic, normocephalic Eye exam: PRESENT: conjunctiva pink, EOMI, PERRLA. ABSENT: scleral icterus Neck exam: ABSENT: carotid bruit, JVD, lymphadenopathy, thyromegaly Respiratory exam: PRESENT: clear to auscultation johan. ABSENT: rales, rhonchi, wheezes Cardiovascular exam: PRESENT: RRR. ABSENT: diastolic murmur, rubs, systolic murmur Rectal exam: PRESENT: deferred Neurological exam: PRESENT: alert, awake, oriented to person, oriented to place, oriented to time, oriented to situation, CN II-XII grossly intact, other - Patient is currently rubbing her forehead, and seems to have difficulty finding her words. ABSENT: motor sensory deficit Results Laboratory Results: 10/05/18 03:32 10/05/18 03:32 10/04/18 10/04/18 10/04/18 18:10 18:10 18:10 WBC 13.5 H RBC 5.51 H Hgb 14.7 Hct 45.0 MCV 82 MCH 26.6 L MCHC 32.6 RDW 17.8 H Plt Count 169 Seg Neutrophils % Not Reportable Lymphocytes % Not Reportable Monocytes % Not Reportable Eosinophils % Not Reportable Basophils % Not Reportable Absolute Neutrophils Not Reportable Absolute Lymphocytes Not Reportable Absolute Monocytes Not Reportable Absolute Eosinophils Not Reportable Absolute Basophils Not Reportable Sodium 141.0 Potassium 3.7 Chloride 103 Carbon Dioxide 23 Anion Gap 15 BUN 26 H Creatinine 0.86 Est GFR ( Amer) > 60 Est GFR (Non-Af Amer) > 60 Glucose 324 H Calcium 9.7 Magnesium Total Bilirubin 0.7 AST 41 H ALT 32 Alkaline Phosphatase 63 Total Protein 7.6 Albumin 4.3 Triglycerides Cholesterol LDL Cholesterol Direct VLDL Cholesterol HDL Cholesterol Lipase 26.2 TSH Free T4 Free T3 pg/mL Urine Color DARK YELLOW Urine Appearance CLOUDY Urine pH 5.0 Ur Specific [place] 1.028 Urine Protein >=500 H Urine Glucose (UA) NEGATIVE Urine Ketones 20 H Urine Blood LARGE H Urine Nitrite NEGATIVE Ur Leukocyte Esterase NEGATIVE Urine WBC (Auto) 42 Urine RBC (Auto) >182 10/04/18 10/05/18 10/05/18 18:10 03:32 03:32 WBC RBC Hgb Hct MCV MCH MCHC RDW Plt Count Seg Neutrophils % Lymphocytes % Monocytes % Eosinophils % Basophils % Absolute Neutrophils Absolute Lymphocytes Absolute Monocytes Absolute Eosinophils Absolute Basophils Sodium 141.0 Potassium 3.1 L Chloride 107 Carbon Dioxide 24 Anion Gap 10 BUN 23 H Creatinine 0.90 Est GFR ( Amer) > 60 Est GFR (Non-Af Amer) > 60 Glucose 94 Calcium 8.7 Magnesium 2.0 Total Bilirubin AST ALT Alkaline Phosphatase Total Protein Albumin Triglycerides 107 Cholesterol 105.38 LDL Cholesterol Direct 58 VLDL Cholesterol 21.0 HDL Cholesterol 34 L Lipase TSH Cancelled 2.14 Free T4 Cancelled 1.72 Free T3 pg/mL Cancelled 3.64 Urine Color Urine Appearance Urine pH Ur Specific [place] Urine Protein Urine Glucose (UA) Urine Ketones Urine Blood Urine Nitrite Ur Leukocyte Esterase Urine WBC (Auto) Urine RBC (Auto) 10/05/18 03:32 WBC 7.8 RBC 4.57 Hgb 12.1 D Hct 37.3 MCV 82 MCH 26.5 L MCHC 32.5 RDW 17.6 H Plt Count 150 Seg Neutrophils % Lymphocytes % Monocytes % Eosinophils % Basophils % Absolute Neutrophils Absolute Lymphocytes Absolute Monocytes Absolute Eosinophils Absolute Basophils Sodium Potassium Chloride Carbon Dioxide Anion Gap BUN Creatinine Est GFR ( Amer) Est GFR (Non-Af Amer) Glucose Calcium Magnesium Total Bilirubin AST ALT Alkaline Phosphatase Total Protein Albumin Triglycerides Cholesterol LDL Cholesterol Direct VLDL Cholesterol HDL Cholesterol Lipase TSH Free T4 Free T3 pg/mL Urine Color Urine Appearance Urine pH Ur Specific [place] Urine Protein Urine Glucose (UA) Urine Ketones Urine Blood Urine Nitrite Ur Leukocyte Esterase Urine WBC (Auto) Urine RBC (Auto) 10/04/18 10/04/18 10/05/18 18:10 21:32 03:32 Creatine Kinase CK-MB (CK-2) 0.61 Troponin I 0.080 0.073 0.049 10/05/18 10/05/18 10/05/18 03:32 10:10 10:10 Creatine Kinase < 20 L < 20 L CK-MB (CK-2) 0.61 Troponin I 0.025 Impressions: Chest X-Ray 10/04/18 18:08 IMPRESSION: NO ACUTE RADIOGRAPHIC FINDING IN THE CHEST. Head CT 10/04/18 18:15 IMPRESSION: NO ACUTE INTRACRANIAL FINDINGS. EVIDENCE OF ACUTE STROKE: NO. Head MRI 10/05/18 00:00 IMPRESSION: Motion degraded exam. 1. No evidence of acute intracranial abnormality. 2. 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 EVIDENCE OF ACUTE STROKE: NO. Assessment and Plan - Diagnosis (1) CAD (coronary artery disease) Qualifiers: Coronary Disease-Associated Artery/Lesion type: [place] artery [place] vs. transplanted heart: [place] heart Associated angina: without angina Qualified Code(s): I25.10 - Atherosclerotic heart disease of [place] coronary artery without angina pectoris Is this a current diagnosis for this admission?: Yes Plan: Patient be continued on her usual medications for coronary artery disease. 10/05/2018 maintain current medications observe for chest pain (2) COPD (chronic obstructive pulmonary disease) Qualifiers: COPD type: unspecified COPD Qualified Code(s): J44.9 - Chronic obstructive pulmonary disease, unspecified Is this a current diagnosis for this admission?: Yes Plan: Patient be continued on her usual regiment for COPD if it is available to her pharmacy. If not she will receive a standard pulmonary toilet. 10/05/2018 symptomatic from her COPD presently (3) Diabetes mellitus, type II, insulin dependent Is this a current diagnosis for this admission?: Yes Plan: Patient be continued on her usual diabetic regiment and a diabetic diet. He moglobin A1c will be obtained to evaluate the patient's current therapy efficacy. Before meals and at bedtime blood sugars will be obtained with sliding scale insulin for hyperglycemia and a hypoglycemic regiment in place. 10/05/2018 currently no symptoms from her diabetes will maintain fingerstick glucose (4) Intractable headache Qualifiers: Headache type: unspecified Headache chronicity pattern: unspecified pattern Qualified Code(s): R51 - Headache Is this a current diagnosis for this admission?: Yes Plan: Patient be placed in observation status and an MRI of her head will be obtained. She will receive morphine sulfate IV 3.0 to 7.5 mg every 2 hours as needed on a sliding scale basis. She will also be maintained on IV fluids. Her headache status will be reevaluated frequently on an ongoing basis. Daily laboratory evaluations with a CBC, metabolic profile and magnesium level will be obtained. A thyroid profile and a lipid profile will also be obtained. 10/05/2018 MRI not show any gross abnormalities, CT head scan does not show any sign of intracranial lesions. Sed rate will be checked. I would like to try a trial of steroids and may do so, however will have to watch her blood sugars during this trial. Also will try some butalbital in the meantime. - Time Time Spent with patient: 15-24 minutes
[2018-10-05 15:47] LABS: CREATINE KINASE MB 0.54 ng/mL (<4.55); TROPONIN I 0.014 ng/mL
[2018-10-05] MEDS ORDERED: OXYCODONE-ACETAMINOPHEN 5-325 MG TABLET PO PRN (18:06)
[2018-10-05] MEDS: INSULIN REG, HUMAN 100 UNIT/ML 3 ML VIAL (PYX) SUBCUT PRN (22:32)
[2018-10-06] MEDS: HEPARIN SOD (PORCINE) 5,000 UNIT/ML 1 ML VIAL SUBCUT SCH ×3 (05:16→22:55)
[2018-10-06] MEDS: LEVALBUTEROL HCL NEB 1.25 MG/3 ML AMPUL NEB SCH ×3 (08:04→16:21)
[2018-10-06] MEDS: IPRATROPIUM BROMIDE 0.02% NEB 0.5 MG/2.5 ML AMPUL NEB SCH ×3 (08:04→16:21)
[2018-10-06] MEDS: BUDESONIDE NEB 0.5 MG/2 ML AMPUL NEB SCH ×3 (08:04→20:35)
--- NOTE | 2018-10-06 10:04 | PDOC PROGRESS REPORT ---
Subjective Progress Note for:: 10/06/18 Subjective:: 10/05/2018 she was admitted last night for a worsening headache for the last 3 weeks, this actually been going on for 8 months. She states that ever since she fell and hit her head back in December she is had a headache though it is much worse in the last 3 weeks patient also is complaining of some nausea and vomiting for the last 3 weeks. Patient states the headache is in the frontal region behind both eyes but is worse on the right side than the left. Patient used to have migraines when she was much younger but has not had them for years. Patient states that this headache is not typical for what her migraines used to be like. Patient has a history of having a bypass surgery 10 years ago, 2 MIs and colon cancer where she was treated with chemotherapy. Patient states that her worst problem is this headache. Patient states that is almost difficult to talk due to the pain and she seems somewhat "confused" 10/06/2018-patient is not complaining of headache right now. Not confused. Able to give her data but able to communicate with me well. MRI of the head was negative for acute pathology. We are going to do the CTA of the neck today. Reason For Visit: INTRACTABLE HEADACHE Physical Exam Vital Signs: Temp Pulse Resp BP Pulse Ox 97.5 F 55 L 18 154/48 H 93 10/06/18 08:16 10/06/18 08:16 10/06/18 08:16 10/06/18 08:16 10/06/18 08:16 Intake & Output 10/05/18 10/06/18 10/07/18 06:59 06:59 06:59 Intake Total 2100 2480 Balance 2100 2480 Weight 84.4 kg 82.2 kg General appearance: PRESENT: no acute distress Head exam: PRESENT: atraumatic Eye exam: PRESENT: PERRLA Mouth exam: PRESENT: moist, tongue midline Teeth exam: PRESENT: poor dentation Neck exam: ABSENT: carotid bruit, JVD, lymphadenopathy, thyromegaly Respiratory exam: PRESENT: clear to auscultation johan. ABSENT: rales, rhonchi, wheezes Cardiovascular exam: PRESENT: RRR, systolic murmur GI/Abdominal exam: PRESENT: normal bowel sounds, soft. ABSENT: distended, guarding, mass, organolmegaly, rebound, tenderness Rectal exam: PRESENT: deferred Extremities exam: PRESENT: full ROM. ABSENT: calf tenderness, clubbing, pedal edema Neurological exam: PRESENT: alert, awake, oriented to person, oriented to place, oriented to time, oriented to situation, CN II-XII grossly intact. ABSENT: motor sensory deficit Psychiatric exam: PRESENT: appropriate affect, normal mood. ABSENT: homicidal ideation, suicidal ideation Results Laboratory Results: 10/05/18 03:32 10/05/18 03:32 10/05/18 15:04 TSH 1.01 10/04/18 18:10 Clean Catch Midstream Urine Culture - Final Mixed Urogenital Xiomara 10/04/18 10/04/18 10/05/18 18:10 21:32 03:32 Creatine Kinase CK-MB (CK-2) 0.61 Troponin I 0.080 0.073 0.049 10/05/18 10/05/18 10/05/18 03:32 10:10 10:10 Creatine Kinase < 20 L < 20 L CK-MB (CK-2) 0.61 Troponin I 0.025 10/05/18 10/05/18 15:04 15:04 Creatine Kinase < 20 L CK-MB (CK-2) 0.54 Troponin I 0.014 Impressions: Chest X-Ray 10/04/18 18:08 IMPRESSION: NO ACUTE RADIOGRAPHIC FINDING IN THE CHEST. Head CT 10/04/18 18:15 IMPRESSION: NO ACUTE INTRACRANIAL FINDINGS. EVIDENCE OF ACUTE STROKE: NO. Head MRI 10/05/18 00:00 IMPRESSION: Motion degraded exam. 1. No evidence of acute intracranial abnormality. 2. 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 EVIDENCE OF ACUTE STROKE: NO. Assessment and Plan - Diagnosis (1) Intractable headache Qualifiers: Headache type: unspecified Headache chronicity pattern: unspecified pattern Qualified Code(s): R51 - Headache Is this a current diagnosis for this admission?: Yes Plan: Patient be placed in observation status and an MRI of her head will be obtained. She will receive morphine sulfate IV 3.0 to 7.5 mg every 2 hours as needed on a sliding scale basis. She will also be maintained on IV fluids. Her headache status will be reevaluated frequently on an ongoing basis. Daily laboratory evaluations with a CBC, metabolic profile and magnesium level will be obtained. A thyroid profile and a lipid profile will also be obtained. 10/05/2018 MRI not show any gross abnormalities, CT head scan does not show any sign of intracranial lesions. Sed rate will be checked. I would like to try a trial of steroids and may do so, however will have to watch her blood sugars during this trial. Also will try some butalbital in the meantime. 10/06/2018-on examination this morning patient denies any headaches at this moment. Alert awake communicating well. Not in distress. If the brain was negative for acute pathology. Plan is to do the CT of the neck today. ESR came back 24 within normal limits. Patient is on IV methylprednisone which is going to be discontinued from today. (2) Diabetes mellitus, type II, insulin dependent Is this a current diagnosis for this admission?: Yes Plan: Patient be continued on her usual diabetic regiment and a diabetic diet. Hemoglobin A1c will be obtained to evaluate the patient's current therapy efficacy. Before meals and at bedtime blood sugars will be obtained with sliding scale insulin for hyperglycemia and a hypoglycemic regiment in place. 10/05/2018 currently no symptoms from her diabetes will maintain fingerstick gluc ose 10/06/2018-patient blood sugar today is 36. Blood sugars are relatively well controlled. hemoGlobin A1c is 5.5. (3) CAD (coronary artery disease) Qualifiers: Coronary Disease-Associated Artery/Lesion type: [place] artery [place] vs. transplanted heart: makah heart Associated angina: without angina Qualified Code(s): I25.10 - Atherosclerotic heart disease of [place] coronary artery without angina pectoris Is this a current diagnosis for this admission?: Yes Plan: Patient be continued on her usual medications for coronary artery disease. 10/05/2018 maintain current medications observe for chest pain 10/06/2018-patient has history of coronary artery disease no complaints of chest pain at this point plan is to continue the present management. (4) COPD (chronic obstructive pulmonary disease) Qualifiers: COPD type: unspecified COPD Qualified Code(s): J44.9 - Chronic obstructive pulmonary disease, unspecified Is this a current diagnosis for this admission?: Yes Plan: Patient be continued on her usual regiment for COPD if it is available to her pharmacy. If not she will receive a standard pulmonary toilet. 10/05/2018 symptomatic from her COPD presently 10/06/2018-patient has history of COPD pulse ox is 94% on room air. Not in distress. Chest bilateral entry was decreased no wheezing no crepitations. (5) Bradycardia Is this a current diagnosis for this admission?: Yes Plan: 10/06/2018-patient's heart rate is 33 this morning and repeat one is 55 to watch for the bradycardia. She is not on any beta-blockers at this point. On examination heart murmur is present sinus rhythm. - Time Time Spent with patient: 25-34 minutes Anticipated discharge: Home
[2018-10-06] MEDS: ISOSORBIDE MONONITRATE 60 MG TAB.ER.24H PO SCH (10:45)
[2018-10-06] MEDS: CLOPIDOGREL BISULFATE 75 MG TABLET PO SCH (10:46)
[2018-10-06] MEDS: ASPIRIN 325 MG TABLET, ENT COATED PO SCH (10:46)
[2018-10-06] MEDS: FAMOTIDINE 20 MG TABLET PO SCH ×2 (10:46→22:54)
[2018-10-06] MEDS: SERTRALINE HCL 50 MG TABLET PO SCH (10:47)
[2018-10-06] MEDS: LOSARTAN POTASSIUM 25 MG TABLET PO SCH (10:47)
[2018-10-06] MEDS: DOCUSATE SODIUM 100 MG CAPSULE PO SCH ×2 (10:47→18:08)
[2018-10-06] MEDS: ACETAMINOPHEN 325 MG TABLET PO PRN ×2 (13:35→18:22)
--- NOTE | 2018-10-06 15:45 | RADIOLOGY REPORT (SQ) ---
EXAM DESCRIPTION: CTA NECK COMPLETED DATE/TIME: 10/06/2018 3:19 pm REASON FOR STUDY: altered mental status E03.9 HYPOTHYROIDISM, UNSPECIFIED D50.8 OTHER IRON DEFICIE NCY ANEMIAS N39.0 URINARY TRACT INFECTION, SITE NOT SPECIFIED COMPARISON: None. TECHNIQUE: Axial dynamic scanning technique with dynamic contrast enhancement through the extra-ground crewman aircraft support nial carotid and vertebral arteries. Multiplanar reconstruction. 3-D MIPS and Volume-rendered imag es acquired at the workstation and saved to PACS. Images are reviewed in soft tissue, bone, lung w indows. All CT scanners at this facility use dose modulation, iterative reconstruction, and/or weight based d osing when appropriate to reduce radiation dose to as low as reasonably achievable (ALARA). [facility]: Dose Right [facility]: CareDose [facility]: Dose Right [facility]: Teradose 4D [facility]: [employer] Software CONTRAST TYPE AND DOSE: contrast/concentration: Isovue 350.00 mg/ml; Total Contrast Delivered: 70.0 ml; Total Saline Delivered: 75.0 ml RENAL FUNCTION: BUN 23 creatinine 0.9. LIMITATIONS: None. FINDINGS: AORTIC ARCH: Normal three-vessel origin. Bilateral subclavian arteries are patent. No d issection. RIGHT CAROTIDS: Patent common, internal and external carotid arteries. Calcified plaque in the carot id bulb and proximal internal carotid artery with estimated 50% luminal narrowing. No dissection. RIGHT VERTEBRAL: Patent. No dissection. LEFT CAROTIDS: Patent common, internal and external carotid arteries. Calcified plaque in the caroti d bulb and proximal internal carotid artery with estimated 60-70% luminal narrowing. No dissection. LEFT VERTEBRAL: Patent. No dissection. OTHER: No other significant finding. OTHER: 3-D reconstructions confirm findings. IMPRESSION: BILATERAL CALCIFIED PLAQUE IN THE CAROTID BULBS AND PROXIMAL INTERNAL CAROTID ARTERIES W ITH ESTIMATED 50% LUMINAL NARROWING OF THE RIGHT INTERNAL CAROTID ARTERY AND 60- 70% LUMINAL NARROWIN G OF THE LEFT INTERNAL CAROTID ARTERY. RECOMMEND CORRELATION WITH CAROTID DOPPLER. COMMENT: Quality ID #[id number]: Measurements of distal internal carotid diameter were used as the denomina tor for stenosis measurement. TECHNICAL DOCUMENTATION: JOB ID: [id number] Quality ID # [id number]: Final reports with documentation of one or more dose reduction techniques (e.g., Au tomated exposure control, adjustment of the mA and/or kV according to patient size, use of iterative reconstruction technique) 2010 [employer]- All Rights Reserved Reading location - IP/workstation name: [email or web address]
[2018-10-06] MEDS: BUTALB/ACETAMINOPHEN/CAFFEINE 1 TAB EACH PO PRN ×2 (15:51→22:57)
[2018-10-06 15:55] LABS: APPEARANCE,URINE SLIGHTLY-CLOUDY; BILIRUBIN,URINE NEGATIVE (NEGATIVE); COLOR,URINE AMBER; GLUCOSE, URINE NEGATIVE (NEGATIVE); KETONES,URINE NEGATIVE (NEGATIVE); LEUKOCYTE ESTERASE,URINE NEGATIVE (NEGATIVE); NITRITE,URINE NEGATIVE (NEGATIVE); PROTEIN,URINE 100 mg/dL (NEGATIVE); URINE SPECIFIC GRAVITY 1.026; UROBILINOGEN,URINE NEGATIVE mg/dL (<2.0)
[2018-10-06] MEDS ORDERED: TAMSULOSIN HCL 0.4 MG CAP.SR.24H PO SCH (18:00)
--- NOTE | 2018-10-06 20:36 | EKG REPORT ---
SEVERITY:- OTHERWISE NORMAL ECG - SINUS RHYTHM VENTRICULAR PREMATURE COMPLEX : Confirmed by: Pedro Horton 06-Oct-2018 20:35:43
[2018-10-06] MEDS ORDERED: SIMVASTATIN 10 MG TABLET PO SCH (22:00)
[2018-10-07] MEDS: LEVALBUTEROL HCL NEB 1.25 MG/3 ML AMPUL NEB SCH ×2 (00:23→07:23)
[2018-10-07] MEDS: IPRATROPIUM BROMIDE 0.02% NEB 0.5 MG/2.5 ML AMPUL NEB SCH ×2 (00:23→07:23)
[2018-10-07] MEDS: HEPARIN SOD (PORCINE) 5,000 UNIT/ML 1 ML VIAL SUBCUT SCH (05:34)
[2018-10-07] MEDS ORDERED: LEVOTHYROXINE SODIUM 0.025 MG TABLET PO SCH (06:00)
[2018-10-07 06:02] LABS: ABSOLUTE EOSINOPHILS # (AUTO) 0.1 10^3/uL (0.0-0.6); ABSOLUTE LYMPHOCYTES (AUTO) 2.2 10^3/uL (0.5-4.7); ABSOLUTE MONOCYTES (AUTO) 0.5 10^3/uL (0.1-1.4); ABSOLUTE NEUT (AUTO) 2.4 10^3/uL (1.7-8.2); BASOPHILS % (AUTO) 0.7 % (0-2); EOSINOPHILS % (AUTO) 1.1 % (0-6); HEMATOCRIT 32.1 % (36.0-47.0); HEMOGLOBIN 10.7 g/dL (12.0-15.5); LYMPHOCYTES % (AUTO) 42.9 % (13-45); MEAN CORPUSCULAR HEMOGLOBIN 27.3 pg (27.0-33.4); MEAN CORPUSCULAR HGB CONC 33.3 g/dL (32.0-36.0); MEAN CORPUSCULAR VOLUME 82 fl (80-97); MONOCYTES % (AUTO) 8.8 % (3-13); PLATELET COUNT 108 10^3/uL (150-450); RED BLOOD COUNT 3.92 10^6/uL (3.72-5.28); RED CELL DISTRIBUTION WIDTH 18.1 % (11.5-14.0); SEGMENTED NEUTROPHILS % (AUTO) 46.5 % (42-78); TOTAL CELLS COUNTED % (AUTO) 100 %; WHITE BLOOD COUNT 5.1 10^3/uL (4.0-10.5)
[2018-10-07 06:17] LABS: ALANINE AMINOTRANSFERASE 21 U/L (9-52); ALBUMIN 2.9 g/dL (3.5-5.0); ALKALINE PHOSPHATASE 44 U/L (38-126); ANION GAP 7 (5-19); ASPARTATE AMINO TRANSFERASE 18 U/L (14-36); BILIRUBIN,DIRECT 0.3 mg/dL (0.0-0.4); BILIRUBIN,TOTAL 0.3 mg/dL (0.2-1.3); BLOOD UREA NITROGEN 15 mg/dL (7-20); CALCIUM 8.9 mg/dL (8.4-10.2); CARBON DIOXIDE 25 mmol/L (22-30); CHLORIDE 110 mmol/L (98-107); GLUCOSE 110 mg/dL (75-110); POTASSIUM 3.5 mmol/L (3.6-5.0); TOTAL PROTEIN 5.2 g/dL (6.3-8.2)
[2018-10-07] MEDS: BUDESONIDE NEB 0.5 MG/2 ML AMPUL NEB SCH (07:23)
[2018-10-07] MEDS: ASPIRIN 325 MG TABLET, ENT COATED PO SCH (10:30)
[2018-10-07] MEDS: SERTRALINE HCL 50 MG TABLET PO SCH (10:30)
[2018-10-07] MEDS: DOCUSATE SODIUM 100 MG CAPSULE PO SCH (10:30)
[2018-10-07] MEDS: CLOPIDOGREL BISULFATE 75 MG TABLET PO SCH (10:30)
[2018-10-07] MEDS: ISOSORBIDE MONONITRATE 60 MG TAB.ER.24H PO SCH (10:30)
[2018-10-07] MEDS: FAMOTIDINE 20 MG TABLET PO SCH (10:30)
[2018-10-07] MEDS: LOSARTAN POTASSIUM 25 MG TABLET PO SCH (10:31)
[2018-10-07 12:12] VITALS: BP 138/45
[2018-10-07] MEDS: INSULIN REG, HUMAN 100 UNIT/ML 3 ML VIAL (PYX) SUBCUT PRN (12:52)
--- NOTE | 2018-10-19 06:34 | PDOC DISCHARGE SUMMARY ---
General - Admit/Disc Date/PCP Admission Date/Primary Care Provider: 10/04/18 23:39 OZZY DENISE MD 10/04/2018 Discharge Date: 10/07/18 - Discharge Diagnosis (1) CAD (coronary artery disease) Is this a current diagnosis for this admission?: Yes Summary: 10/07/2018 patient had no cardiac symptoms while in the hospital patient did have a history of myocardial infarction x2 as well as CABG. She was stable from the cardiac standpoint while in the hospital. Patient was maintained on her cardiac meds (2) COPD (chronic obstructive pulmonary disease) Is this a current diagnosis for this admission?: Yes Summary: 10/07/2018 patient has a history of COPD as well as respiratory failure ever she had no problems with her pulmonary system while in the hospital. (3) Diabetes mellitus, type II, insulin dependent Is this a current diagnosis for this admission?: Yes Summary: 10/07/2018 patient has a history of diabetes type 2 however her sugars were well controlled while in the hospital with no complications (4) Intractable headache Is this a current diagnosis for this admission?: Yes Summary: 10/07/2018 intractable headache with the patient's primary complaint for being admitted to the hospital. Patient states she had a headache since December 2017 but it is worsened in the last 3 to 4 weeks. Patient states that her headache is located behind her right eye is constant. Patient states that sometimes the pain is so bad it causes her to be nauseated vomit and also complains of some photophobia with a headache. Patient states that she has had headaches for many years. Patient has had a work-up as an outpatient with a neurologist and several other physicians in the past for her headaches. While in the hospital the patient had CTA of the neck that showed carotid stenosis on the right internal 50 percent, left internal carotid 60 to 70% stenosis. MRI of the brain showed no evidence of acute intracranial abnormality, she did have some white matter changes with possible chronic lacunar infarcts no evidence of acute stroke. CT head scan showed no acute intracranial findings no evidence of acute stroke no evidence of sinus disease. - Additional Information Resuscitation Status: Full Code Discharge Diet: As Tolerated, Other (Comments) Discharge Activity: Activity As Tolerated, No Driving Prescriptions: Butalb/Acetaminophen/Caffeine [Fioricet (50-325-40 mg) Tablet] 1 tab PO Q6HP PRN 5 Days #20 each PRN Reason: Home Medications: Aspirin [Ecotrin 325 mg EC Tablet] 325 mg PO DAILY 08/29/11 Insulin Glargine,Hum.rec.anlog [Lantus Insulin 100 Unit/mL Insulin Pen] 60 unit SQ QHS 08/29/11 Isosorbide Mononitrate 60 mg PO DAILY 08/29/11 Metformin HCl [Glucophage 500 mg Tablet] 500 mg PO BID 08/29/11 Metoprolol Tartrate [Lopressor 25 mg Tablet] 25 mg PO BID 08/29/11 Amlodipine Besylate 2.5 mg PO DAILY 05/14/14 Clopidogrel Bisulfate [Plavix 75 mg Tablet] 75 mg PO DAILY 05/14/14 Sertraline HCl 50 mg PO DAILY 05/14/14 Simvastatin [Zocor 20 mg Tablet] 20 mg PO QHS 05/14/14 Tamsulosin HCl [Flomax 0.4 mg Cap.sr] 0.4 mg PO DAILY #7 cap.sr.24h 09/06/18 Lansoprazole 30 mg PO QAM 10/05/18 Levothyroxine Sodium 25 mcg PO Q6AM 10/05/18 Losartan Potassium [Cozaar 25 mg Tablet] 25 mg PO DAILY 10/05/18 Butalb/Acetaminophen/Caffeine [Fioricet (50-325-40 mg) Tablet] 1 tab PO Q6HP PRN 5 Days #20 each 10/07/18 History of Present Illness History of Present Illness: MANAV RUBIO is a 78 year old female 10/07/2018 patient had a thorough neurologic work-up which did not reveal any pathology to account for her headache. Patient was given a trial of plain Fioricet while in the hospital with good relief of her pain. Patient was told she needed follow-up with neurology for her carotid stenosis on the left. was in the room during the discussion. At the time of discharge patient was given a prescription for plain Fioricet No. 20 no refills patient was to fo llow-up with her primary care provider as well at the time of discharge. Headaches seem to be some form of a variant of stress, cluster. Patient will need further neurologic follow-up. She is medically stable at the time of discharge. Physical Exam Vital Signs: Temp Pulse Resp BP Pulse Ox 98.0 F 62 19 138/45 H 97 10/07/18 12:09 10/07/18 12:09 10/07/18 12:09 10/07/18 12:09 10/07/18 12:09 General appearance: PRESENT: no acute distress, well-developed, well-nourished Head exam: PRESENT: atraumatic, normocephalic Eye exam: PRESENT: conjunctiva pink, EOMI, PERRLA. ABSENT: scleral icterus Respiratory exam: PRESENT: clear to auscultation johan. ABSENT: rales, rhonchi, wheezes Cardiovascular exam: PRESENT: RRR. ABSENT: diastolic murmur, rubs, systolic murmur GI/Abdominal exam: PRESENT: normal bowel sounds, soft. ABSENT: distended, guarding, mass, organolmegaly, rebound, tenderness Neurological exam: PRESENT: alert, awake, oriented to person, oriented to place, oriented to time, oriented to situation, CN II-XII grossly intact. ABSENT: motor sensory deficit Psychiatric exam: PRESENT: appropriate affect, normal mood. ABSENT: homicidal ideation, suicidal ideation Results Laboratory Results: 10/07/18 04:45 10/07/18 04:45 10/04/18 10/04/18 10/05/18 18:10 21:32 03:32 Creatine Kinase CK-MB (CK-2) 0.61 Troponin I 0.080 0.073 0.049 10/05/18 10/05/18 10/05/18 03:32 10:10 10:10 Creatine Kinase < 20 L < 20 L CK-MB (CK-2) 0.61 Troponin I 0.025 10/05/18 10/05/18 15:04 15:04 Creatine Kinase < 20 L CK-MB (CK-2) 0.54 Troponin I 0.014 Impressions: Chest X-Ray 10/04/18 18:08 IMPRESSION: NO ACUTE RADIOGRAPHIC FINDING IN THE CHEST. Head CT 10/04/18 18:15 IMPRESSION: NO ACUTE INTRACRANIAL FINDINGS. EVIDENCE OF ACUTE STROKE: NO. Head MRI 10/05/18 00:00 IMPRESSION: Motion degraded exam. 1. No evidence of acute intracranial abnormality. 2. 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 EVIDENCE OF ACUTE STROKE: NO. Neck CTA 10/06/18 00:00 IMPRESSION: BILATERAL CALCIFIED PLAQUE IN THE CAROTID BULBS AND PROXIMAL INT ERNAL CAROTID ARTERIES WITH ESTIMATED 50% LUMINAL NARROWING OF THE RIGHT INTERNAL CAROTID ARTERY AND 60- 70% LUMINAL NARROWING OF THE LEFT INTERNAL CAROTID ARTERY. RECOMMEND CORRELATION WITH CAROTID DOPPLER. Qualifiers - * PATIENT BEING DISCHARGED WITH ANY OF THE FOLLOWING DIAGNOSIS: No VTE patient discharged on overlapping Therapy?: No Acute Heart Failure - Is this a Heart Failure Patient?: No Plan Discharge Plan: 10/07/2018 patient and her were instructed that she needed to follow-up with neurology for her left carotid stenosis, as well as further prescriptions for her headache, patient was medically stable at the time of discharge Time Spent: Greater than 30 Minutes
== END 2018-10-07 13:53 | disposition home or self-care (01) ==
LOC: ER 17:08 → EH 23:39 → 4W 10-05 11:46 → 4N 10-05 16:00
PROVIDERS: ADMIT Emergency Medicine; ATTEND Emergency Medicine
DX: R51 Headache (principal); H53.149 Visual discomfort, unspecified; R11.2 Nausea with vomiting, unspecified; I25.10 Atherosclerotic heart disease of native coronary artery without angina pectoris; J44.9 Chronic obstructive pulmonary disease, unspecified; E11.649 Type 2 diabetes mellitus with hypoglycemia without coma; R47.9 Unspecified speech disturbances; I10 Essential (primary) hypertension; E86.0 Dehydration; R00.1 Bradycardia, unspecified; I65.23 Occlusion and stenosis of bilateral carotid arteries; R31.9 Hematuria, unspecified; I25.2 Old myocardial infarction; Z91.81 History of falling; Z98.84 Bariatric surgery status; Z95.1 Presence of aortocoronary bypass graft; Z92.21 Personal history of antineoplastic chemotherapy; Z90.49 Acquired absence of other specified parts of digestive tract; Z90.710 Acquired absence of both cervix and uterus; Z86.69 Personal history of other diseases of the nervous system and sense organs; Z79.4 Long term (current) use of insulin; Z79.82 Long term (current) use of aspirin; Z79.899 Other long term (current) drug therapy; Z85.038 Personal history of other malignant neoplasm of large intestine; Z87.442 Personal history of urinary calculi
CPT/HCPCS: 93005 ×2; 96376; 99285; 96361; 96375; 96365; 36415 ×3; 87086 ×2; 84439; 82553; 82962 ×4; 82550; 83690; 83735; 84443; 85025 ×2; 85027; 85652; 80048; 80053 ×2; 81001 ×2; 84484 ×2; 84481; 83036; 80061; 70553; 71045; 70450; 70498; 93010 ×2; 94640 ×4; G0378 ×5; A9576; A9270 ×23; J1644 ×2; J3490 ×10; J1200; J2920; J2765; J2270 ×2; J3475; J2550; J7030; J7120; J1815

== ENCOUNTER → 2018-12-08 | Outpatient (CLI) | payer MEDICARE, BC ==
--- NOTE | 2018-12-08 15:19 | NEURO WORKBENCH EEG REPORT ---
EEG Report Patient: Nola Nazario ID: [id number] Referring Doctor: Mynor Alvarado MD DOS: 12/08/2018 Medications: Aspirin, bevespi aerosphere, clopidogrel, isosorbide mononitrate, lansoprazole, levothyroxine, losaratan, metformin, metoprolol, nitroglycerin, proair HFA, probiotic, sertraline, simvastatin, vitamin D3 History This is a 78 year old right handed woman with a history of hypertension, type 2 diabetes, COPD, two prior Mis, triple bypass, colon cancer in 1994, kidney stone, migraines since age 13. She fell in December 2017 and beginning of June 2018 migraines returned after stopping following cancer in 1994. This EEG was requested for headaches. EEG Interpretation This EEG was recorded in the awake and minimal drowsy states. The awake EEG is characterized by a moderately well-organized background with a well-developed and reactive posterior dominant rhythm of 8.5Hz mostly noted on the left. The right side of the EEG was nearly completely obscured by muscle artifact throughout the recording preventing interpretation. The remainder of the background consisted of a mix of primarily alpha. Minimal drowsiness is characterized by slowing of the background rhythms. Photic stimulation resulted in no significant changes. There were no epileptiform abnormalities. The EKG showed an irregular rhythm with many beats that resembled PVCs. EEG Classification EKG irregular beats Significant artifact on right EEG Impression This EEG appears within normal limits for age in the awake and minimal drowsy states but the study was incomplete due to the right sided artifact that prevented interpretation. If clinically indicated, a repeat EEG should be considered. The EKG had multiple aberrant beats noted that may require further investigation. INTERPRETING NEUROLOGIST: Monie Sales MD, FRCPC Board Certified in Neurology, with special qualification in Child Neurology, and in Clinical Neurophysiology [facility]
== END ==
LOC: NEURO 12:30
PROVIDERS: ATTEND Pediatrics
DX: R51 Headache (principal); G31.84 Mild cognitive impairment of uncertain or unknown etiology
CPT/HCPCS: 95819